=== PATIENT | male | born 1975 | race Asian ===

== ENCOUNTER 2018-07-01 18:23 | Emergency (ER) | payer OTHER ==
--- NOTE | 2018-07-01 18:51 | EDPHY ---
H & P Stated Complaint: chin lac Source: Patient - Personal History Current Tetanus/Diphtheria Vaccine: Unsure Current Tetanus Diphtheria and Acellular Pertussis (TDAP): Unsure - Medical/Surgical History Hx Asthma: No Hx Chronic Respiratory Disease: No Hx Diabetes: No Hx Cardiac Disease: No Hx Renal Disease: No Hx Cirrhosis: No Hx Alcoholism: No Hx HIV/AIDS: No Hx Splenectomy or Spleen Trauma: No Other PMH: denies - Social History Smoking Status: Never smoked Time Seen by Provider: 07/01/18 18:51 HPI/ROS: HPI CHIEF COMPLAINT: Chin laceration, right-sided jaw pain HISTORY OF PRESENT ILLNESS: 42-year-old male presents emergency room if he was ice skating this evening, slipped and fell on his chin against the ice. She sustained a midline horizontally oriented 4 cm chin laceration. Also complains of right jaw pain. No malocclusion with bite. Denies any other areas of injury. Patient reports that tetanus shot is not up-to-date. Past Medical History: No medical history Past Surgical History: No surgical history Social History: Denies drugs alcohol tobacco. Family History: Noncontributory ROS REVIEW OF SYSTEMS: 10 Systems were reviewed and negative with the exception of the elements mentioned in the history of present illness. Exam Constitutional triage nursing summary reviewed, vital signs reviewed, awake/ alert. Eyes normal conjunctivae and sclera, EOMI, PERRLA. HENT face: Mild tender palpation right jaw line. Chin: Horizontally oriented 5 cm laceration. No malocclusion with bite. Dentition intact. Midface stable. Otherwise atraumatic head and neck exam. normal inspection, atraumatic, moist mucus membranes, no epistaxis, neck supple/ no meningismus, no raccoon eyes. Respiratory clear to auscultation bilaterally, normal breath sounds, no respiratory distress, no wheezing. Cardiovascular rate normal, regular rhythm, no murmur, no edema, distal pulses normal. Gastrointestinal soft, non-tender, no rebound, no guarding, normal bowel sounds, no distension, no pulsatile mass. Genitourinary no CVA tenderness. Musculoskeletal no midline vertebral tenderness, full range of motion, no calf swelling, no tenderness of extremities, no meningismus, good pulses, neurovascularly intact. Skin pink, warm, & dry, no rash, skin atraumatic. Neurologic awake, alert and oriented x 3, AAOx3, moves all 4 extremities equally, motor intact, sensory intact, CN II-XII intact, normal cerebellar, normal vision, normal speech. Psychiatric normal mood/affect. Heme/Lymph/Immune no lymphadenopathy. Differential Diagnosis: Includes but is not limited to in a particular order chin laceration, soft tissue injury, mandible fracture Medical Decision Making: Plan for this patient CT maxillofacial to rule out fracture, repair chin laceration, update tetanus shot. Re-evaluation: CT maxillofacial without contrast negative for acute traumatic injury called to me by Dr. Cueto. (Rafa Ferreira) Constitutional: Initial Vital Signs Temperature (C) 36.8 C 07/01/18 18:33 Heart Rate 66 07/01/18 18:33 Respiratory Rate 16 07/01/18 18:33 Blood Pressure 118/79 07/01/18 18:33 O2 Sat (%) 99 07/01/18 18:33 O2 Delivery Mode Room Air Allergies/Adverse Reactions: No Known Allergies Allergy (Unverified 07/01/18 18:33) Home Medications: Medication Instructions Recorded NK [No Known Home Meds] 07/01/18 Medical Decision Making - Diagnostics Imaging Results: Imaging Impressions Face CT 07/01/18 18:58 Impression: Negative noncontrast CT of the facial bones. Results called Dr. Olivier Chadwick at 7:10 PM. Procedures: Procedure: Laceration repair with tissue adhesive I was requested by Dr. Rafa Ferreira to perform wound closure Verbal consent was obtained from the patient. The 2.5 cm laceration on the chin was scrubbed and explored to its base with a gloved finger. No foreign body seen, no foreign bodies palpated. There were no deep structures involved. The wound was repaired with tissue adhesive. The procedure was performed by myself. Patient has been informed that scarring will occur, although efforts have been made to minimize this. (Tona Griffin) - Data Points Medications Given: Discontinued Medications Diphtheria/Tetanus/Acell Pertussis (Boostrix) 0.5 ml IM .ONCE ONE Stop: 07/01/18 18:59 Last Admin: 07/01/18 19:22 Dose: 0.5 ml Departure - Departure Disposition: Home, Routine, Self-Care Clinical Impression: Laceration Condition: Good Instructions: Laceration (ED) Additional Instructions: 1. Return if any questions/concerns 2. Return emergency room if you have any worsening symptoms questions or concerns. Referrals: NONE *PRIMARY CARE P,. [Primary Care Provider] - As per Instructions
[2018-07-01] MEDS ORDERED: TDAP ADULT 0.5 ML INJ (BOOSTRIX) IM ONE (18:58)
[2018-07-01] MEDS ORDERED: SKIN ADHESIVE (DERMABOND) 1 EACH TP ONE (19:10)
[2018-07-01 19:37] VITALS: BP 117/89
== END 2018-07-01 19:36 | disposition home or self-care (01) ==
PROC: 0HQ1XZZ Repair Face Skin, External Approach (ICD-10-PCS; principal; 2018-07-01)
DX: S01.81XA Laceration without foreign body of other part of head, initial encounter (principal); R68.84 Jaw pain; V00.211A Fall from ice-skates, initial encounter; Y92.89 Other specified places as the place of occurrence of the external cause; Y93.21 Activity, ice skating; Y99.9 Unspecified external cause status; Z23 Encounter for immunization